=== PATIENT | female | born 1955 | race Caucasian/White ===

== ENCOUNTER → 2019-02-27 15:43 | Outpatient (CLI) | payer OTHER, SELFPAY ==
--- NOTE | 2019-02-27 16:10 | BD_ITS ---
STUDY: DUAL ENERGY X-RAY ABSORPTIOMETRY / DXA REASON FOR EXAM: Female, 63 years old. The patient is postmenopausal. Loss of height. TECHNIQUE: Bone Mineral Density (BMD) measurements of lumbar spine and bilateral hips were obtained. COMPARISON: None. FINDINGS: Lumbar Spine (L1-L4): g/cm2 (0.934) / T-score (-2.0) / Z-score (-0.6) Findings are suggestive of osteopenia with a moderate fracture risk. Left Femur Total: g/cm2 (0.820) / T-score (-1.5) / Z-score (-0.4) Left Femoral Neck: g/cm2 (0.788) / T-score (-1.8) / Z-score (-0.5) Right Femur Total: g/cm2 (0.852) / T-score (-1.2) / Z-score (-0.2) Right Femoral Neck: g/cm2 (0.824) / T-score (-1.5) / Z-score (-0.2) BD/Dexa Bone Density Study IMPRESSION: The patient is considered osteopenic as outlined below according to World [employer] Organization (WHO) criteria with a moderate fracture risk. Reference Information: The T-score is the number of standard deviations above or below the standard which is normal for young adults at their peak bone mineral density. The World Health Organization (WHO) interprets the T-scores as follows: Above -1 Normal bone density Between -1 and -2.5 Osteopenia Equal to / or below -2.5 Osteoporosis As a practical clinical guideline, osteopenia may be graded as follows: Mild -1 through -1.5 Moderate -1.6 through -2.0 Severe -2.1 through -2.4 The Z-score is the number of standard deviations above or below age-matched controls. A Z-score of less than -1.5 would be considered abnormal. References: 1. NIH Osteoporosis and Related Bone Diseases http://www.osteo.org 2. International Society for Clinical Densitometry http://www.iscd.org 3. National Osteoporosis Foundation http://www.nof.org Electronically Signed: Abner Corona, at 10:29 EST , Service support ,
== END ==
PROVIDERS: Family Provider Nurse Practitioner; PCP Nurse Practitioner; Referring Provider Nurse Practitioner; Visit Provider Nurse Practitioner
DX: Z78.0 Asymptomatic menopausal state (principal)
CPT/HCPCS: 77080

== ENCOUNTER → 2021-03-09 08:32 | Outpatient (CLI) | payer OTHER, SELFPAY ==
--- NOTE | 2021-03-09 08:35 | BI_ITS ---
MAMMOGRAPHY - BILATERAL SCREENING REASON FOR EXAM: Female, 65 years old. Routine annual screening examination. PERTINENT HISTORY: Sisters with breast cancer. Aunts with breast cancer. Prior bilateral excisional breast biopsies. TECHNIQUE: Digital bilateral breast radha (3D mammographic acquisition) in the CC and MLO projections. 2-D mediolateral oblique (MLO) and craniocaudad (CC) views of both breasts were obtained. CAD: Full Field Digital Mammography with Computer Added Detection was performed. COMPARISON: Comparison is made with prior outside examination dated 01/20/2019. FINDINGS: Breast Composition: There are scattered areas of fibroglandular density. There is a 1.3 cm x 1.7 cm nodular density in the upper lateral aspect of the right breast. A tissue marker is seen within it from prior biopsy. Correlation with ultrasound is recommended. No other significant abnormalities are identified. BI/SCRN MAMM (CAD)W/RADHA BILAT IMPRESSION: 1.3 cm x 1.7 cm nodular density in the upper lateral aspect of the right breast. A tissue marker is seen within it. Correlation with ultrasound is recommended. ASSESSMENT CATEGORY: BIRADS Category 0: Incomplete. Need additional imaging evaluation. A letter regarding these results will be sent to the patient by the facility within 30 days. Approximately 10% of breast cancers are not detected by mammography. A normal mammogram should not delay biopsy of a clinically suspicious abnormality. [id number] Electronically Signed: Abner Corona MD at 14:11 EST , Service support ,
== END ==
PROVIDERS: PCP Nurse Practitioner; Visit Provider Nurse Practitioner
DX: Z12.31 Encounter for screening mammogram for malignant neoplasm of breast (principal)
CPT/HCPCS: 77063; 77067

== ENCOUNTER 2021-04-01 12:32 | Outpatient (CLI) | payer OTHER, SELFPAY ==
--- NOTE | 2021-04-01 12:40 | US_ITS ---
STUDY: ULTRASOUND BREAST - RIGHT REASON FOR EXAM: Female, 65 years old. Abnormal screening mammogram. TECHNIQUE: Axial and longitudinal images of the RIGHT breast were performed with a high resolution ultrasound transducer. # OF IMAGES: 22 COMPARISON: Comparison is made with prior mammogram dated 03/09/2021. FINDINGS: RIGHT Breast: The mammographic abnormality corresponds to a 1.2 cm x 1.6 cm x 1.8 cm hypoechoic irregular nodule at the 10 o''clock position of the breast of 4 cm from nipple. There is posterior acoustical shadowing. A biopsy is recommended. US/Breast Limited Unilateral IMPRESSION: 1.2 cm x 1.6 x 1.8 RENE hypoechoic irregular nodule at the 10 o''clock position the breast at 4 cm nipple as described. Biopsy recommended. ASSESSMENT CATEGORY: BIRADS Category 4: Suspicious - Biopsy Should Be Considered. A letter regarding these results will be sent to the patient by the facility within 30 days. Electronically Signed: Abner Corona MD at 13:32 EST , Service support ,
== END 2021-04-01 23:59 | disposition short-term general hospital (02) ==
PROVIDERS: PCP Nurse Practitioner; Referring Provider Nurse Practitioner; Visit Provider Nurse Practitioner
DX: N63.10 Unspecified lump in the right breast, unspecified quadrant (principal)
CPT/HCPCS: 76642

== ENCOUNTER → 2022-05-18 | Outpatient (CLI) | payer MEDICARE, SELFPAY ==
--- NOTE | 2022-05-18 14:10 | BD_ITS ---
STUDY: DUAL ENERGY X-RAY ABSORPTIOMETRY / DXA REASON FOR EXAM: Female, 66 years old. [id number] TECHNIQUE: Bone Mineral Density (BMD) measurements of lumbar spine and bilateral hips were obtained. COMPARISON: Comparison is made with prior study dated February 27, 2019. FINDINGS: Lumbar Spine (L1-L4): g/cm2 (0.748) / T-score (-2.7) / Z-score (-0.9) Findings are suggestive of osteoporosis with a high fracture risk. Left Femur Total: g/cm2 (0.763) / T-score (-1.5) / Z-score (-0.2) Left Femoral Neck: g/cm2 (0.626) / T-score (-2.0) / Z-score (-0.4) Right Femur Total: g/cm2 (0.775) / T-score (-1.4) / Z-score (-0.1) Right Femoral Neck: g/cm2 (0.611) / T-score (-2.1) / Z-score (-0.6) Right Forearm: g/cm2 ( ) / T-score ( ) / Z-score ( ) Left Forearm: g/cm2 ( ) / T-score ( ) / Z-score ( ) The T-Scores on the most recent prior examination were: Lumbar Spine (L1-L4): There has been worsening of bone density since the previous examination. Left Femur Total: which represents an improvement of 0.5%. Right Femur Total: which represents a worsening of 1.9%. BD/Dexa Bone Density Study IMPRESSION: The patient is considered osteoporotic as outlined below according to [employer] Organization (WHO) criteria with a high fracture risk. There has been worsening of bone density since the previous examination. Reference Information: The T-score is the number of standard deviations above or below the standard which is normal for young adults at their peak bone mineral density. The World Health Organization (WHO) interprets the T-scores as follows: Above -1 Normal bone density Between -1 and -2.5 Osteopenia Equal to / or below -2.5 Osteoporosis As a practical clinical guideline, osteopenia may be graded as follows: Mild -1 through -1.5 Moderate -1.6 through -2.0 Severe -2.1 through -2.4 The Z-score is the number of standard deviations above or below age-matched controls. A Z-score of less than -1.5 would be considered abnormal. References: 1. NIH Osteoporosis and Related Bone Diseases www osteo.org 2. International Society for Clinical Densitometry www iscd.org 3. National Osteoporosis Foundation www nof.org Electronically Signed: Abner Corona MD at 15:22 EST ,
== END | disposition home or self-care (01) ==
LOC: OPBD 14:04
PROVIDERS: PCP Nurse Practitioner Family; Visit Provider Nurse Practitioner Family
DX: Z78.0 Asymptomatic menopausal state (principal)
CPT/HCPCS: 77080